=== PATIENT | male | born 1955 ===

== ENCOUNTER 2021-10-07 16:09 | Emergency (ER) | payer SELFPAY ==
[~2021-10-07] VITALS: Ht 165.1 cm; Wt 66.2 kg
[2021-10-07] MEDS ORDERED: IBUPROFEN 800 MG TAB PO ONE (18:30)
[2021-10-07 18:46] VITALS: BP 165/84
[2021-10-07] MEDS ORDERED: IBUP800T27 PO (18:50)
== END 2021-10-07 18:54 | disposition home or self-care (01) ==
LOC: ER 16:09
DX: M65.222 Calcific tendinitis, left upper arm (principal)
CPT/HCPCS: 73080